=== PATIENT | male | born 1960 | race Caucasian/White ===

== ENCOUNTER 2019-10-23 14:32 | Emergency (ER) | payer BC ==
[2019-10-23 14:48] VITALS: BP 162/86
--- NOTE | 2019-10-23 15:23 | UC ---
Skin Complaint HPI - HPI Summary HPI Summary: On Saturday Mr. Marie noticed that his left hip and leg felt strange. Since that time he's developed pain and a rash. He's had no systemic symptoms. - History of Current Complaint Chief Complaint: UCLowerExtremity Time Seen by Provider: 10/23/19 15:07 Stated Complaint: SOFT TISSUE COMPLAINT Hx Obtained From: Patient Onset/Duration: Gradual Onset, Lasting Days Skin Exposure Onset/Duration: Days Ago Timing: Constant Onset Severity: Mild Current Severity: Moderate Pain Intensity: 6 Location: Discrete Character: Pain, Redness Aggravating Factor(s): Nothing Alleviating Factor(s): Nothing - Aspirin helped some yesterday he did not take any today. Associated Signs & Symptoms: Positive: Negative - Allergy/Home Medications Allergies/Adverse Reactions: Allergies Allergy/AdvReac Type Severity Reaction Status Date / Time No Known Allergies Allergy Verified 10/23/19 14:39 Home Medications: Home Medications NK [No Home Medications Reported] 05/20/14 [History Confirmed 10/23/19] PMH/Surg Hx/FS Hx/Imm Hx Previously Healthy: Yes - Surgical History Surgical History: None - Family History Known Family History: Positive: Non-Contributory - Social History Alcohol Use: Occasionally Substance Use Type: None Smoking Status (MU): Never Smoked Tobacco Review of Systems All Other Systems Reviewed And Are Negative: Yes Constitutional: Positive: Negative Skin: Positive: Rash ENT: Positive: Negative Respiratory: Positive: Negative Cardiovascular: Positive: Negative Gastrointestinal: Positive: Negative Neurovascular: Positive: Negative Musculoskeletal: Positive: Negative Neurological/Mental Status: Positive: Negative Is Patient Immunocompromised?: No Physical Exam - Summary Physical Exam Summary: He is nontoxic in appearance with stable vitals Triage Information Reviewed: Yes Appearance: Well-Appearing, No Pain Distress Vital Signs: Initial Vital Signs Temp 97.5 F 10/23/19 14:35 Pulse 84 10/23/19 14:35 Resp 18 10/23/19 14:35 BP 162/86 10/23/19 14:35 Pulse Ox 96 10/23/19 14:35 Vital Signs Reviewed: Yes Respiratory Exam: Normal Cardiovascular Exam: Normal Abdominal Exam: Normal Musculoskeletal Exam: Normal Neurological Exam: Normal Skin: Positive: Rashes - He has macular erythema that is patchy on his left buttock, coming down his left lateral thigh and ending more medially. Course/Dx - Course Course Of Treatment: This is an unusual rash. He generally looks to be along the distribution of L4 or L5 and is significantly painful. I suspect this is shingles and I'm going to treat him accordingly. This does not look like a bacterial infection. - Diagnoses Provider Diagnosis: Thigh shingles Discharge ED - Sign-Out/Discharge Documenting (check all that apply): Patient Departure All imaging exams completed and their final reports reviewed: No Studies - Discharge Plan Condition: Stable Disposition: HOME Patient Education Materials: Shingles (ED) Referrals: Jason Mccray MD [Primary Care Provider] - - Billing Disposition and Condition Condition: STABLE Disposition: Home
== END 2019-10-23 15:35 | disposition home or self-care (01) ==
LOC: UCEAST 14:32
DX: B02.9 Zoster without complications (principal)
CPT/HCPCS: 99212; G0463